=== PATIENT | female | born 1975 | race Two or more races ===

== ENCOUNTER 2018-07-10 08:20 | Emergency (ER) | payer OTHER ==
[~2018-07-10] VITALS: Ht 147.3 cm; Wt 81.6 kg
[2018-07-10 08:26] VITALS: BP 149/86
[2018-07-10] MEDS ORDERED: NKM (08:28)
--- NOTE | 2018-07-10 08:33 | NUR ---
ED Nurse Note: Pt came in due to left wrist injury. Per pt it happened after pulling a heavy bag at work. No pain or swelling noted.
[2018-07-10] MEDS ORDERED: TYLENOL EXTRA500 MG ORAL (09:34)
[2018-07-10 09:43] VITALS: BP 138/75
--- NOTE | 2018-07-10 09:43 | NUR ---
ED Nurse Note: Pt is cleared by Health Care Provider for discharge. DC instructions/prescription was given and explained to pt and verbalized understanding of teachings given. All medical devices such as ID band removed. Pt AAO x4, ambulatory and left with all personal belongings.
--- NOTE | 2018-07-10 10:23 | Emergency Room Report ---
History of Present Illness General Chief Complaint: Upper Extremity Injury Source: Patient Present Illness HPI 42-year-old female presents ED for evaluation. Patient complaining of left wrist pain. 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 States that she hurt her left wrist while pulling a heavy bag today. Pain is dull, 6 out of 10 , nonradiating. Denies any other injuries. No other aggravating relieving factors. Denies any other associated symptoms Allergies: Coded Allergies: No Known Allergies (Unverified , 07/10/18) Patient History Past Medical History: none Past Surgical History: none Pertinent Family History: none Social History: Denies: smoking, alcohol use, drug use Last Menstrual Period: 06/25/18 Now: No Immunizations: UTD Reviewed Nursing Documentation: PMH: Agreed; PSxH: Agreed Nursing Documentation-PMH Past Medical History: No Stated History Review of Systems All Other Systems: negative except mentioned in HPI Physical Exam Vital Signs Date Time Temp Pulse Resp B/P (MAP) Pulse Ox O2 Delivery O2 Flow Rate FiO2 07/10/18 08:26 98.2 86 18 149/86 96 Room Air Sp02 EP Interpretation: reviewed, normal General Appearance: no apparent distress, alert, GCS 15, non-toxic Head: normocephalic Eyes: bilateral eye normal inspection, bilateral eye PERRL ENT: normal ENT inspection Neck: normal inspection Respiratory: normal inspection Cardiovascular #1: normal inspection Gastrointestinal: normal inspection Rectal: deferred Genitourinary: no CVA tenderness Musculoskeletal: tender - L wrist Neurologic: alert, oriented x3, responsive, motor strength/tone normal, sensory intact, speech normal Psychiatric: normal inspection Skin: normal inspection Lymphatic: normal inspection Procedures Splinting Splinting : Consent: Verbal Pre-Made Type: velcro Splint: wrist Pre-Proc Neuro Vasc Exam: normal Post-Proc Neuro Vasc Exam: normal Patient Tolerated: Well Complications: None Medical Decision Making Diagnostic Impression: Primary Impression: Wrist sprain Qualified Codes: S63.502A - Unspecified sprain of left wrist, initial encounter ER Course Hospital Course 42-year-old F presents to ED complaining of L wrist pain Differential diagnoses include: Fracture, dislocation, sprain, contusion Clinical course Patient placed on stretcher. After initial history and physical, I ordered xrays of L wrist. patient declined pain meds Xrays prelim read shows no acute fracture/dislocation. placed in Velcro splint for comfort Likely sprain. Discussed findings with patient. Treatment is conservative. Ice, analgesics, modified activity. Safe for discharge close outpatient follow-up. I'll provide orthopedic referrals Diagnosis - wrist sprain Stable and discharged to home with prescription for tylenol. apply ice, keep elevated. weight bear as tolerated. Followup with PMD/hand. Return to ED if symptoms recur or worsen Other X-Ray Diagnostic Results Other X-Ray Diagnostic Results : X-Ray ordered: L wrist # of Views/Limited Vs Complete: 3 View Indication: Pain EP Interpretation: Yes Interpretation: no dislocation, no soft tissue swelling, no fractures Impression: No acute disease Electronically Signed by: Electronically signed by Jonas Lind MD Last Vital Signs Date Time Temp Pulse Resp B/P (MAP) Pulse Ox O2 Delivery O2 Flow Rate FiO2 07/10/18 09:43 97.9 80 20 138/75 98 Room Air Status: improved Disposition: HOME, SELF-CARE Condition: Stable Scripts Acetaminophen* (TYLENOL EXTRA STRENGTH*) 500 Mg Tablet 500 MG ORAL Q8H PRN for Prn Headache/Temp > 101, #30 TAB 0 Refills Prov: Jonas Lind MD 07/10/18 Referrals: [facility] 24 hour /7 days a week by Appointment Only [address] [place] [id number] Departure Forms: Return to Work Return to Work Date: Jul 10, 2018 Work Restrictions: No Heavy Lifting Patient Instructions: Wrist Sprain With [facility] Jonas Lind MD Jul 10, 2018 10:23
--- NOTE | 2018-07-10 10:36 | Diagnostic Imaging Report ---
EXAM: XR Left Wrist Complete, 3 or More Views CLINICAL HISTORY: PAIN TECHNIQUE: Frontal, lateral and oblique views of the left wrist. COMPARISON: No relevant prior studies available. FINDINGS: Bones/joints: Unremarkable. No visible displaced fracture. No dislocation. No osseous erosions. Visualized joint spaces appear unremarkable. Soft tissues: Unremarkable. No radiopaque foreign body. IMPRESSION: Unremarkable left wrist x-rays.
== END 2018-07-10 09:43 | disposition home or self-care (01) ==
LOC: EMR 09:01
DX: S63.502A Unspecified sprain of left wrist, initial encounter (principal); X50.0XXA Overexertion from strenuous movement or load, initial encounter; Y92.239 Unspecified place in hospital as the place of occurrence of the external cause; Y99.0 Civilian activity done for income or pay
CPT/HCPCS: 29125; 99283